=== PATIENT | male | born 1970 | race Caucasian/White ===

== ENCOUNTER 2024-08-26 19:39 | Emergency (ER) | payer OTHER ==
[~2024-08-26] VITALS: Ht 177.8 cm; Wt 95.3 kg
--- NOTE | 2024-08-26 19:52 | ERN ---
ED Note History of Present Illness Stated Complaint: SWOLLEN LEG Chief Complaint: Lower Extremity Pain/Injury Time Seen by MD: 19:42 Dictation: PATIENT IS A 53-YEAR-OLD MALE COMING IN TODAY WITH LEFT KNEE PAIN AND CALF SWELLING TENDERNESS HE HAS HAD FOR 3-4 DAYS. NO FEVER NO CHILLS NO NAUSEA VOMITING NO SHORTNESS A BREATH. STATES HE DOES HAVE A HISTORY OF ARTHRITIS OF THE KNEE IN HIS A MISSING ACL. 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 DISTAL NEUROVASCULAR CMS INTACT Allergies: Coded Allergies: No Known Allergies (Unverified Allergy, Unknown, 08/26/24) Home Meds Active Scripts Ibuprofen (Ibuprofen 800 mg Tab) 800 Mg Tab, 800 MG PO Q8H PRN for fever or pain, #30 TAB 0 Refills Prov:OLIVIA GRIFFITH FURNITURE ASSEMBLER AND INSTALLER 08/26/24 Past Medical History Past Medical History: High Cholesterol, Hypertension Surgical History: Tonsillectomy, Other, Bariatric Surgery Surgical History Other: LEFT KNEE RN Note Reviewed/Agreed w/PFSH: Yes Review of System Dictation CONSTITUTIONAL: NEGATIVE EXCEPT FOR HPI HEAD/FACE: NEGATIVE EXCEPT FOR HPI EENT: NEGATIVE EXCEPT FOR HPI RESPIRATORY: NEGATIVE EXCEPT FOR HPI GASTROINTESTINAL/ABDOMINAL: NEGATIVE EXCEPT FOR HPI GENITOURINARY: NEGATIVE EXCEPT FOR HPI MUSCULOSKELETAL: NEGATIVE EXCEPT FOR HPI LEFT KNEE AND LEG PAIN SWELLING INTEGUMENTARY: NEGATIVE EXCEPT FOR HPI NEUROLOGICAL/PSYCH: NEGATIVE EXCEPT FOR HPI HEMATOLOGIC/LYMPHATIC: NEGATIVE EXCEPT FOR HPI ALL SYSTEMS NEGATIVE, EXCEPT NOTED ABOVE. 13 POINT REVIEW OF SYSTEMS ASSESSED AND ALL NEGATIVE EXCEPT FOR ABOVE. Initial Vital Sign VS Vital Signs Date Time Temp Pulse Resp B/P (MAP) Pulse Ox O2 Delivery O2 Flow Rate FiO2 08/26/24 19:40 97.2 82 20 166/100 98 Room Air Physical Exam Dictation VITAL SIGNS REVIEWED GENERAL APPEARANCE: ALERT, ORIENTED X 3, MILD ACUTE DISTRESS, WELL DEVELOPED, NOURISHED. HEAD AND FACE: NON-TRAUMATIC. EYES: PERRL, PINK CONJUNCTIVAS, EYELID NO TRAUMA, ANTERIOR CHAMBER WITH ARCUS SENILIS. EARS: PINNAS INTACT AND NO SIGNS OF TRAUMA OR ERYTHEMA EAR CANALS CLEAR AND NO DISCHARGE TM NO ERYTHEMA NOSE: NO DISCHARGE, NO BLEEDING. OROPHARYNX: MOUTH NORMAL, TONGUE PINK, PHARYNX CLEAR,NO ERYTHEMA, TONSILS NO EXUDATES, NO ABSCESSES NOTED, MUCOUS MEMBRANE MOIST NECK: SUPPLE, NON-TENDER, NO THYROMEGALY, NO MASSES, NO JVD, NO BRUITS BREAST:DEFERRED CHEST:NO TENDERNESS, NO CREPITUS, NO PARADOXICAL MOVEMENT, NO RETRACTIONS LUNGS:CLEAR, WELL-VENTILATED, SYMMETRIC, NO RALES, NO WHEEZING, NO RHONCHI, NO STRIDOR, GOOD BREATH SOUNDS BILATERALLY HEART: REGULAR RATE, REGULAR RHYTHM, NO MURMUR, NO GALLOPS VASCULAR: NO PERIPHERAL EDEMA, ABDOMEN: SOFT, POSITIVE BOWEL SOUNDS, NONDISTENDED, NO GUARDING, NONTENDER, NO REBOUND, NO MASSES NO HEPATOMEGALY, NO SPLENOMEGALY, NO BURDICK'S SIGN, NO HERNIAS. RECTAL: DEFERRED GENITAL: DEFERRED NEUROLOGICAL: NORMAL SPEECH, MOTOR FUNCTION INTACT, SENSORY FUNCTION INTA RIGHT PLANTAR PAIN WORSE WHEN HE STEPS EARLY IN THE [place] LATHER. STATES HE HAS HAD THIS FOR MONTHS WOULD LIKE TREATMENT EXTREMITIES: MILD DIFFUSE LEFT KNEE AND LEFT POSTERIOR CALF SWELLING TENDERNESS. NO ERYTHEMA SKIN IS INTACT. DISTAL NEUROVASCULAR CMS INTACT. POSITIVE HOMANS SIGN SKIN: COLOR PINK, DRY, NO TURGOR, NO RASH, NO LACERATIONS, NO ABRASIONS, NO CONTUSIONS. LYMPHATIC: DEFERRED Results (Laboratory/Radiology) Laboratory/Radiology Laboratory Tests Test 08/26/24 20:32 White Blood Count 7.0 K/uL (4.8-10.8) Red Blood Count 4.52 MIL/uL (4.50-6.20) Hemoglobin 13.3 g/dL (14.0-18.0) L Hematocrit 40.3 % (42-54) L Mean Corpuscular Volume 89.2 fL (79-99) Mean Corpuscular Hemoglobin 29.4 pg (27.0-33.0) Mean Corpuscular Hemoglobin Concent 33.0 g/dL (32.0-36.0) Red Cell Distribution Width 13.3 % (11.0-15.5) Platelet Count 183 K/uL (130-400) Mean Platelet Volume 9.7 fL (7.5-10.5) Immature Granulocyte % (Auto) 0.9 % (0-1) Neutrophils (%) (Auto) 49.5 % (40.0-77.0) Lymphocytes (%) (Auto) 34.4 % (21.0-51.0) Monocytes (%) (Auto) 10.8 % (3.0-13.0) Eosinophils (%) (Auto) 3.3 % (0.0-8.0) Basophils (%) (Auto) 1.1 % (0.0-5.0) Neutrophils # (Auto) 3.5 K/uL (1.8-7.7) Lymphocytes # (Auto) 2.4 K/uL (1.0-4.8) Monocytes # (Auto) 0.8 K/uL (0.1-1.0) Eosinophils # (Auto) 0.23 K/uL (0.00-0.70) Basophils # (Auto) 0.08 K/uL (0.00-0.20) Absolute Immature Granulocyte (auto 0.06 K/uL (0-1) Nucleated Red Blood Cells 0.0 % (0.0-0.19) Sodium Level 133 mmol/L (136-145) L Potassium Level 3.8 mmol/L (3.5-5.1) Chloride Level 97 mmol/L (101-111) L Carbon Dioxide Level 28 mmol/L (21-32) Blood Urea Nitrogen 10 mg/dL (7-18) Creatinine 0.9 mg/dL (0.5-1.3) Glomerular Filtration Rate Calc 101 mL/min (>90) Random Glucose 154 mg/dL (70-105) H Total Calcium 8.9 mg/dL (8.5-10.1) ULTRASOUND DOPPLER LEFT LEG NEGATIVE FOR DVT Labs Reviewed?: Yes ED Course ED Course Orders Procedure Category Date Status Time Us Venous Doppler US 08/26/24 Resulted Unilateral 19:50 Cbc With Differential LAB 08/26/24 Complete 19:50 Basic Metabolic Panel LAB 08/26/24 Complete 19:50 Lidocaine Hcl 1% 20ml PHA 08/26/24 In Process Vial (Lidocaine Hc 21:30 Dexamethasone 4mg/Ml PHA 08/26/24 In Process 1ml Vial (Dexametha 21:30 Dexamethasone 4mg/Ml PHA 08/26/24 Complete 1ml Vial (Dexametha 21:13 Current Medications Medications (Trade) Dose Ordered Sig/[place] Route PRN Reason Start Time Stop Time Status Last Admin Dose Admin Dexamethasone Sodium Phosphate (dexaMETHasone 4MG/ML 1ML VIAL) 4 mg ONCE ONCE IM 08/26/24 21:30 08/26/24 21:31 Dexamethasone Sodium Phosphate (dexaMETHasone 4MG/ML 1ML VIAL) 4 mg STK-MED ONCE .ROUTE 08/26/24 21:13 08/26/24 21:14 DC Lidocaine HCl (Lidocaine HCl 1% 20ml Vial) 5 ML TO BEDSIDE ONCE ONCE INJ 08/26/24 21:30 08/26/24 21:31 Vital Signs Date Time Temp Pulse Resp B/P (MAP) Pulse Ox O2 Delivery O2 Flow Rate FiO2 08/26/24 19:40 97.2 82 20 166/100 98 Room Air 21:00 HOURS ULTRASOUND DVT NEGATIVE LABS UNREMARKABLE EXCEPT FOR MILDLY ELEVATED GLUCOSE AND SODIUM 13 Medical Decision Making MDM MEDICAL DISCHARGE MAKING BASED ON BASIC LABS AND ULTRASOUND TO RULE OUT DVT ULTRASOUND DOPPLER NEGATIVE LABS ESSENTIALLY UNREMARKABLE PATIENT DISCHARGED WITH MUSCULOSKELETAL PAIN GIVEN IBUPROFEN AND TOLD TO SEE HIS PRIMARY CARE DOCTOR Procedure Procedure Dictation: PROCEDURE EXPLAINED TO PATIENT HE AGREED TO PROCEED POINT OF MAXIMAL PAIN IDENTIFIED TO RIGHT CALCANEAL AREA OF FOOT THIS WAS MARKED SITE WAS PREPPED WITH BETADINE STERILELY SWABS X3 MIXED1 ML LIDOCAINE 1% PLAIN WITH DECADRON 4 MG INJECTED POINT OF MAXIMAL PAIN IN A STELLATE MANNER PATIENT STATES PAIN WAS 8/10 PRIOR TO THE INJECTION AFTER INJECTION PAIN WAS DOWN TO 2/10. PATIENT MARKEDLY IMPROVED DX & DISP Disposition: Discharge Departure Impression: Primary Impression: Left leg pain Additional Impressions: Hyponatremia, Hyperglycemia, Plantar fasciitis of right foot Condition: Stable Scripts Ibuprofen (Ibuprofen 800 mg Tab) 800 Mg Tab 800 MG PO Q8H PRN for fever or pain, #30 TAB 0 Refills Prov: OLIVIA GRIFFITH FURNITURE ASSEMBLER AND INSTALLER 08/26/24 Additional Instructions: FOLLOW-UP WITH PRIMARY CARE PROVIDER IN 1 TO 2 DAYS. TAKE MEDICATIONS DIRECTED HERE IN THE EMERGENCY ROOM. OKAY TO CONTINUE HOME MEDICATIONS UNLESS OTHERWISE DISCUSSED DURING YOUR VISIT IN THE EMERGENCY ROOM TODAY. RETURN TO YOUR NEAREST EMERGENCY ROOM IF SYMPTOMS WORSEN OR IF THERE IS NO IMPROVEMENT. CALL 911 IF YOU NEED IMMEDIATE ASSISTANCE. TAKE TYLENOL OR MOTRIN [id number] NEEDED AND IF NO CONTRAINDICATIONS ARE PRESENT. INCREASE ORAL HYDRATION. A WOUND CULTURE OR URINE CULTURE WAS ORDERED HERE IN THE EMERGENCY ROOM DEPARTMENT PLEASE FOLLOW-UP WITH PRIMARY CARE PROVIDER AND ADVISE THEM TO GET REPEAT PORTS FROM OUR FACILITY. IF YOU HAD ANY KIKE WRAP/SPLINTS THAT WERE APPLIED HERE, PLEASE DO NOT REMOVE THEM UNTIL YOU SEE YOUR PRIMARY CARE OR SPECIALTY. DIET AND ACTIVITY TOLERATED. , FOLLOW UP WITH YOUR PRIMARY CARE DOCTOR IN 1-2 DAYS. Time of Disposition: 21:01 I have reviewed the case, and I agree with, Diagnosis and Plan OLIVIA GRIFFITH NP Aug 26, 2024 19:52
--- NOTE | 2024-08-26 20:37 | HMCIMG ---
US VENOUS DOPPLER UNILATERAL INDICATION: Swelling. LEFT LEG CALF SWELLING TENDERNESS. HISTORY OF DVT TECHNIQUE: US VENOUS DOPPLER UNILATERAL Real-time venous Doppler ultrasound was performed using B mode, color flow and spectral analysis. FINDINGS: The visualized greater saphenous junction, common femoral, deep femoral, superficial femoral, popliteal and posterior tibial veins demonstrate normal compressibility and flow. No DVT is identified. IMPRESSION: No evidence of DVT in the visualized left extremity.
[2024-08-26 20:41] LABS: BASOPHILS # (AUTO) 0.08 K/uL (0.00-0.20); BASOPHILS % (AUTO) 1.1 % (0.0-5.0); EOSINOPHILS # (AUTO) 0.23 K/uL (0.00-0.70); EOSINOPHILS % (AUTO) 3.3 % (0.0-8.0); HEMATOCRIT 40.3 % (42-54); IMMATURE GRANULOCYTE ABSOLUTE 0.06 K/uL (0-1); LYMPHOCYTES # (AUTO) 2.4 K/uL (1.0-4.8); LYMPHOCYTES % (AUTO) 34.4 % (21.0-51.0); MEAN CORPUSCULAR HEMOGLOBIN 29.4 pg (27.0-33.0); MEAN CORPUSCULAR VOLUME 89.2 fL (79-99); MONOCYTES # (AUTO) 0.8 K/uL (0.1-1.0); MONOCYTES % (AUTO) 10.8 % (3.0-13.0); NEUTROPHILS # (AUTO) 3.5 K/uL (1.8-7.7); NEUTROPHILS % (AUTO) 49.5 % (40.0-77.0); PLATELET COUNT (AUTO) 183 K/uL (130-400); RED BLOOD CELL COUNT(AUTO) 4.52 MIL/uL (4.50-6.20); RED CELL DISTRIBUTION WIDTH 13.3 % (11.0-15.5)
[2024-08-26 20:49] LABS: CREATININE 0.9 mg/dL (0.5-1.3); POTASSIUM 3.8 mmol/L (3.5-5.1)
[2024-08-26] MEDS ORDERED: IBUP-2077 PO (21:02)
[2024-08-26] MEDS: LIDOCAINE HCL 1% 20 ML VIAL INJ ONE (21:22)
[2024-08-26] MEDS: dexaMETHasone SOD PHOSPHATE 4 MG/ML 1ML VIAL IM ONE (21:22)
[2024-08-26] MEDS: dexaMETHasone SOD PHOSPHATE 4 MG/ML 1ML VIAL ONE (21:22)
[2024-08-26 21:24] VITALS: BP 148/78; PULSE 74; RESP 18; TEMP 97.2; O2SAT 98
== END 2024-08-26 21:26 | disposition home or self-care (01) ==
LOC: EDH 19:41
DX: M72.2 Plantar fascial fibromatosis (principal); M79.605 Pain in left leg; E78.00 Pure hypercholesterolemia, unspecified; E87.1 Hypo-osmolality and hyponatremia; I10 Essential (primary) hypertension; Z90.89 Acquired absence of other organs
CPT/HCPCS: 99284; 20550; 93971; 80048; 85025; 36415; J1100; 20552